=== PATIENT | male | born 1995 | race Caucasian/White ===

== ENCOUNTER 2023-03-22 17:25 | Emergency (ER) | payer BC ==
[2023-03-22] MEDS ORDERED: Sodium Chloride 0.9% 1,000 ML IV ONE ×2 (17:53→20:04)
[2023-03-22] MEDS ORDERED: Ondansetron 4 MG/2 ML SDV IVPUSH ONE (17:53)
[2023-03-22 18:16] LABS: BASOPHILS ABSOLUTE AUTO 0.03 K/mm3 (0.01-0.08); BASOPHILS PERCENT AUTO 0.2 % (0.1-1.2); EOSINOPHILS ABSOLUTE AUTO 0.05 K/mm3 (0.04-0.54); EOSINOPHILS PERCENT AUTO 0.4 (0.8-7.0); HEMATOCRIT 43.6 % (40.1-51.0); HEMOGLOBIN 14.6 gm/dl (13.7-17.5); IMMATURE GRAN ABSOLUTE AUTO 0.03 K/mm3 (0.00-0.10); IMMATURE GRAN PERCENT AUTO 0.2 % (<=1.0); LYMPHOCYTES ABSOLUTE AUTO 1.98 K/mm3 (1.32-3.57); LYMPHOCYTES PERCENT AUTO 16.5 % (21.8-53.1); MEAN CORPUSCULAR HEMOGLOBIN 29.9 pg (25.7-32.2); MEAN CORPUSCULAR HGB CONC 33.5 g/dl (32.2-35.5); MEAN CORPUSCULAR VOLUME 89.2 fl (79.0-92.2); MEAN PLATELET VOLUME 9.1 fl (9.4-12.3); MONOCYTES ABSOLUTE AUTO 0.59 K/mm3 (0.30-0.82); MONOCYTES PERCENT AUTO 4.9 % (5.3-12.2); NEUTROPHILS ABSOLUTE AUTO 9.34 K/mm3 (1.78-5.38); NEUTROPHILS PERCENT AUTO 77.8 % (34.0-67.9); PLATELET COUNT,PLT 243 K/mm3 (163-337); RED BLOOD CELL COUNT 4.89 M/mm3 (4.63-6.08); WHITE BLOOD CELL COUNT,WBC 12.02 K/mm3 (4.23-9.07)
[2023-03-22 18:37] LABS: BARBITURATE SCREEN,URINE NEGATIVE (CUTOFF=200); BENZODIAZEPINES SCREEN,URINE PRESUMPTIVE POSITIVE (CUTOFF=150); BUPRENORPHINE SCREEN,URINE NEGATIVE (CUTOFF=10); METHADONE SCREEN, URINE NEGATIVE (CUT0FF=200); METHAMPHETAMINES SCREEN, URINE NEGATIVE (CUTOFF=500); OXYCODONE SCREEN,URINE NEGATIVE (CUT0FF=100); PROPOXYPHENE SCREEN,URINE NEGATIVE (CUTOFF=300); THC SCREEN,URINE 20 NG/ML PRESUMPTIVE POSITIVE (CUTOFF=50)
[2023-03-22 18:44] LABS: AMPHETAMINES SCREEN, URINE NEGATIVE (CUTOFF=500)
[2023-03-22 19:05] LABS: A/G RATIO 1.3 (1-2); ALBUMIN 4.2 g/dl (3.4-5.0); ANION GAP 13.4 (5-15); BILIRUBIN TOTAL 0.2 mg/dL (0.2-1.0); CALCIUM 8.5 mg/dL (8.5-10.1); EST CRCL DRUG DOSING (CG) 112.54 mL/min; ETHANOL BLOOD MEDICAL 0.35 gm% (0.00); POTASSIUM,K 4.4 mEq/L (3.5-5.1); PROTEIN TOTAL,TP 7.5 g/dl (6.4-8.2); TSH 0.536 uIU/mL (0.358-3.74)
[2023-03-22] MEDS ORDERED: chlordiazePOXIDE 25 MG Cap PO ONE ×2 (22:27→22:29)
== END 2023-03-23 00:30 | disposition home or self-care (01) ==
LOC: JD.ED 17:25
DX: F10.10 Alcohol abuse, uncomplicated (principal); Z91.018 Allergy to other foods; Z72.0 Tobacco use; Y90.1 Blood alcohol level of 20-39 mg/100 ml
CPT/HCPCS: 36415; 80053; 80143; 80179; 80306; 80307; 84443; 85025; 96361; 96374; 99284; A9270; J2405; J7030